=== PATIENT | male | born 1945 | race Caucasian/White ===

== ENCOUNTER 2020-09-22 12:41 | Emergency (ER) | payer MEDICARE ==
[~2020-09-22] VITALS: Ht 172.7 cm; Wt 73.9 kg
[2020-09-22 14:30] LABS: IMMATURE GRANULOCYTES 0.4 % (0.0-5.0); MEAN CELL VOLUME 92.5 fL CALC (80.0-100.0); MEAN CORPUSCULAR HGB 30.8 pG CALC (26.0-32.0); MEAN CORPUSCULAR HGB CONC 33.3 g/dL CAL (32.0-36.0); NEUT# 5.2 thou/uL (1.82-7.42); RED BLOOD COUNT 4.54 mill/uL (4.70-6.10); RED CELL DISTRI WIDTH 12.4 % (11.5-15.5)
[2020-09-22 14:44] LABS: ALBUMIN 4.1 g/dL (3.2-5.0); ALKALINE PHOSPHATASE 73 u/l (38-126); BUN 29 mg/dL (8-23); BUN/CREATININE RATIO 23 (12-20 (CALC)); CHLORIDE 106 mmol/l (95-108); CREATININE 1.3 mg/dL (0.7-1.3); GFR 54 ML/MIN (>=60 (CALC)); GFR FOR AFR.AMER. > 60 ML/MIN (>=60 (CALC)); LIPASE 162 u/l (23-300); POTASSIUM 4.1 mmol/l (3.5-5.1); SODIUM 135 mmol/l (137-146); TOTAL PROTEIN 7.6 g/dL (6.3-8.2)
[2020-09-22 14:45] LABS: ANION GAP 15 (6-22 (CALC)); BILIRUBIN, TOTAL 0.9 mg/dL (0.0-1.4); CARBON DIOXIDE 18 mmol/l (22-30); SGOT/AST 50 u/l (19-48)
[2020-09-22 16:17] LABS: URINE BLOOD DIPSTICK NEGATIVE (NEGATIVE); URINE GLUCOSE - DIPSTICK NEGATIVE (NEGATIVE); URINE KETONE 15 mg/dL (NEGATIVE); URINE LEUK ESTERASE NEGATIVE (NEGATIVE); URINE NITRITE - DIPSTICK NEGATIVE (Negative); URINE PH 5.5 (4.5-8.0); URINE PROTEIN - DIPSTICK NEGATIVE (NEG-TRACE); URINE SPECIFIC GRAVITY >=1.030; URINE UROBILINOGEN - DIPSTICK 0.2 E.U./dL (0.2)
[2020-09-22 16:22] LABS: URINE BILIRUBIN - DIPSTICK SMALL (NEGATIVE); URINE COLOR DK. YELLOW
[2020-09-22] MEDS ORDERED: DECADRON4 MG PO ×2 (16:57→16:59)
[2020-09-22] MEDS ORDERED: TAM75CAP PO (16:58)
[2020-09-22] MEDS ORDERED: VENTOLIN HFA IN (16:58)
[2020-09-22 17:49] VITALS: BP 149/60
== END 2020-09-22 17:48 | disposition home or self-care (01) ==
LOC: ED 12:41
PROVIDERS: Student in an Organized Health Care Education/Training Program
DX: U07.1 COVID-19 (principal); J12.82 Pneumonia due to coronavirus disease 2019; R63.0 Anorexia; R11.0 Nausea; R53.1 Weakness; J11.1 Influenza due to unidentified influenza virus with other respiratory manifestations; I10 Essential (primary) hypertension; F17.290 Nicotine dependence, other tobacco product, uncomplicated; Z87.442 Personal history of urinary calculi
CPT/HCPCS: Q9967

== ENCOUNTER 2023-03-14 14:49 | Emergency (ER) | payer MEDICARE ==
[~2023-03-14] VITALS: Ht 172.7 cm; Wt 83.0 kg
[~2023-03-14 14:49] MED LIST: DECADRON4 MG PO; TAM75CAP PO; VENTOLIN HFA IN
[2023-03-14 15:03] VITALS: BP 152/73
[2023-03-14] MEDS ORDERED: BACTRIM DS1 TAB PO (15:12)
[2023-03-14 15:19] VITALS: BP 152/73
== END 2023-03-14 15:23 | disposition home or self-care (01) ==
LOC: ED 14:49
DX: L03.114 Cellulitis of left upper limb (principal); I10 Essential (primary) hypertension; F17.290 Nicotine dependence, other tobacco product, uncomplicated